=== PATIENT | female | born 2000 | race Caucasian/White ===

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

== ENCOUNTER 2022-01-19 21:17 | Emergency (ER) | payer OTHER ==
[~2022-01-19] VITALS: Ht 162.6 cm; Wt 59.9 kg
[~2022-01-19 21:17] MED LIST changes: +IBUP-2213 PO; +PENI500T20 PO; +PRED20TA5 PO
[2022-01-19 21:34] VITALS: BP 126/74
--- NOTE | 2022-01-19 21:38 | NUR ---
PT TO THE BATHROOM FOR URINATION AND COLLECTION
--- NOTE | 2022-01-19 21:42 | NUR ---
PT TO THE LOBBY
[2022-01-19 22:48] LABS: APPEARANCE,URINE CLEAR (CLEAR); BILIRUBIN,URINE NEGATIVE (NEGATIVE); BLOOD, URINE NEGATIVE (NEGATIVE); COLOR,URINE YELLOW (YELLOW); LEUKOCYTE ESTERASE ,URINE 1+ (NEGATIVE); NITRITE, URINE NEGATIVE (NEGATIVE); UGLUCOSE NEGATIVE (NEGATIVE)
[2022-01-19 23:15] LABS: RBC,URINE 0-5 /HPF (0-5)
[2022-01-19] MEDS ORDERED: ONDANSETRON 4 MG/2 ML VIAL IVP ONE (23:40)
[2022-01-19] MEDS ORDERED: NACL 0.9% 1,000 ML IV ONE (23:40)
[2022-01-20 00:40] LABS: ANION GAP 13.6 (8-16); CARBON DIOXIDE 26.7 mmol/L (21-32); CREATININE 0.5 mg/dL (0.6-1.3); POTASSIUM 4.3 mmol/L (3.5-5.1)
[2022-01-20] MEDS ORDERED: ONDANSETRON 4 MG ODT PO ONE (01:25)
--- NOTE | 2022-01-20 01:44 | NUR ---
PROVIDED PT WITH WATER. PT TOLERATING WELL AT THIS TIME
[2022-01-20] MEDS ORDERED: ONDA-188 PO (02:35)
[2022-01-20] MEDS ORDERED: DOXY1TCP PO (02:35)
--- NOTE | 2022-01-20 03:11 | NUR ---
Patient taken to bed 11.
--- NOTE | 2022-01-20 03:15 | NUR ---
started IV 22 G RAC and GIVEN NSS bolus
[2022-01-20 04:09] VITALS: BP 122/74
--- NOTE | 2022-01-20 04:09 | NUR ---
Patient discharged with v/s stable. Written and verbal after care instructions given and explained. Patient alert, oriented and verbalized understanding of instructions. Ambulatory with steady gait. All questions addressed prior to discharge. ID band removed. Patient advised to follow up with PMD. Rx of Zofran and Diclegis given. Patient educated on indication of medication including possible reaction and side effects. Opportunity to ask questions provided and answered.
== END 2022-01-20 04:09 | disposition home or self-care (01) ==
LOC: MED 21:17
DX: O21.8 Other vomiting complicating pregnancy (principal); Z3A.09 9 weeks gestation of pregnancy; Z79.899 Other long term (current) drug therapy
CPT/HCPCS: 36415; 80048; 81001; 81025; 87086; 99283; Q0162